=== PATIENT | male | born 1990 | race Caucasian/White ===

== ENCOUNTER 2019-11-29 14:38 | Emergency (ER) | payer SELFPAY ==
[~2019-11-29] VITALS: Ht 185.4 cm; Wt 90.7 kg
[2019-11-29] MEDS ORDERED: NALOXONE H0.4 MG/12 IJ (14:48)
--- NOTE | 2019-11-29 14:50 | NUR ---
ED Nurse Note: Pt was brought in by [employer] from his private vehicle d/t overdose of meth today. 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 Pt's is AOx4, GCS 15; appears to be lethargic, VSS, on RA, afebrile on triage. [employer] at bedside. Pt hooked to monitor.
[2019-11-29 14:56] VITALS: BP 142/73
--- NOTE | 2019-11-29 15:01 | Emergency Room Report ---
History of Present Illness General Chief Complaint: Overdose Source: Patient Present Illness HPI Disclaimer: Please note that this report is being documented using DRAGON technology. This can lead to erroneous entry secondary to incorrect interpretation by the dictating instrument. HPI: 29-year-old male history of substance abuse presents for medical clearance prior to incarceration. The patient was found unconscious in a car by [employer]. He admits to snorting heroin several hours ago. He states he feels sleepy but denies any shortness of breath, cough, chest pain, palpitations, lightheadedness, headache, nausea, vomiting, diarrhea or other symptoms at this time. States he has used heroin in the past but not for some time. He denies other drug or alcohol use today. Denies any medical concerns or complaints otherwise at this time. No Narcan was administered. Patient arrives awake and alert according to EMS and stable vital signs en route. PMH: Substance abuse PSH: Denied Allergies: Denied Social Hx: Substance abuse history Allergies: Coded Allergies: No Known Allergies (Unverified , 11/29/19) COVID-19 Screening Contact w/high risk pt: No Experienced COVID-19 symptoms?: No COVID-19 Testing performed TEACHING DIETITIAN: No Nursing Documentation-PMH Past Medical History: No Stated History Review of Systems All Other Systems: negative except mentioned in HPI Physical Exam Vital Signs Date Time Temp Pulse Resp B/P (MAP) Pulse Ox O2 Delivery O2 Flow Rate FiO2 11/29/19 14:32 97.9 106 20 142/73 (96) 99 Room Air General: Awake and alert, no acute distress HEENT: NC/AT. EOMI. Cardiovascular: RRR. S1 and S2 normal. No murmur appreciated Resp: Normal work of breathing. No cough, wheezing or crackles appreciated Abdomen: Abdomen is soft, nondistended. Nontender Skin: Intact. No abrasions, laceration or rash over the exposed skin MSK: Normal tone and bulk. Moving all extremities. No obvious deformity. Neuro: Awake and alert. Mentating appropriately. Medical Decision Making Diagnostic Impression: Primary Impression: Opiate abuse, episodic ER Course 29-year-old male arrives in police custody for medical clearance prior to booking. Patient admits to snorting heroin approximately 3 to 4 hours ago. He did not receive Narcan arrives with GCS of 15, awake, alert, conversant, no respiratory distress. Initially was tachycardic in triage however his vital signs are now within normal limits. Saturating 99% on room air and heart rate now normalized. He denies any complaints at this time. Do not believe he requires emergent labs or imaging at this time. Patient was monitored in the emergency department and had no signs of respiratory depression or mental status changes. He is stable for outpatient follow-up and we discharged to [employer] custody. He was written a prescription for Narcan. Referred to outpatient drug abuse resources. Instructed to return with new or worsening symptoms. Last Vital Signs Date Time Temp Pulse Resp B/P (MAP) Pulse Ox O2 Delivery O2 Flow Rate FiO2 11/29/19 14:56 106 20 Room Air 11/29/19 14:32 97.9 142/73 (96) 99 Disposition: LAW ENFORCEMENT IN CUST Condition: Stable Scripts Naloxone Hcl (NALOXONE HCL*) 0.4 Mg/1 Ml Vial 0.4 MG IJ ONCE for 1 Day, #1 VIAL Prov: Alonso Monteiro MD 11/29/[address]: [facility] Psych ER - Peds ER - [facility] Intake Hotline - [facility] - [facility] Departure Forms: Longterm Clearance Patient Instructions: Opioid Use Disorder Additional Instructions: In the future, refrain from using any illicit drugs as it can be hazardous to your health and even fatal. If you need help with drug or alcohol abuse contact one of the resources listed here in your discharge paperwork. Return to the emergency department with any new or worsening symptoms. Alonso Monteiro MD Nov 29, 2019 15:01
[2019-11-29 15:37] VITALS: BP 146/76
--- NOTE | 2019-11-29 15:37 | NUR ---
ER DISCHARGE NOTE: Pt is cleared to be discharged per ERMD, pt is aox4, on room air, with stable vital signs. [employer] was given dc and prescription instructions, PD was able to verbalize understanding, pt id band removed. pt is able to ambulate with steady gait. pt took all belongings.
== END 2019-11-29 15:37 ==
LOC: EDBD 14:38 → EMR 15:10
DX: F11.10 Opioid abuse, uncomplicated (principal)
CPT/HCPCS: 99281